=== PATIENT | male | born 1955 | race Caucasian/White ===

== ENCOUNTER 2017-05-16 08:23 | Day surgery (SDC) | payer SELFPAY ==
[2017-05-16] MEDS ORDERED: LIDOCAINE HCL 1% MPF SOL ONE (08:54)
[2017-05-16] MEDS ORDERED: PROPOFOL 500 MG/50 ML EMU IV ONE (08:54)
[2017-05-16 10:27] VITALS: BP 100/64; PULSE 76; RESP 20; TEMP 96.9; O2SAT 97
== END 2017-05-16 10:45 | disposition home or self-care (01) | DRG 392 ==
LOC: SURG 08:23
PROVIDERS: ATTEND Surgery
DX: R13.10 Dysphagia, unspecified (principal); C15.5 Malignant neoplasm of lower third of esophagus; K44.9 Diaphragmatic hernia without obstruction or gangrene
CPT/HCPCS: 99001; J2001; J2704

== ENCOUNTER 2018-10-23 10:57 | Emergency (ER) | payer SELFPAY ==
[2018-10-23 11:07] VITALS: RESP 20
[2018-10-23 12:50] LABS: ALBUMIN 3.1 gm/dl (3.4-5.0); BILIRUBIN,TOTAL 0.5 mg/dl (0.2-1.0); CALCIUM 8.5 mg/dl (8.5-10.1); CARBON DIOXIDE 25.8 mEq/L (21-32); CREATININE 0.79 mg/dl (0.80-1.30); TOTAL PROTEIN 7.1 gm/dl (6.4-8.2)
[2018-10-23 12:58] LABS: BASOPHILS % (AUTO) 1 % (0-3); EOSINOPHILS % (AUTO) 3 % (0-9); HEMATOCRIT 38 % (39-53); HEMOGLOBIN 12.4 gm/dl (13.5-17.7); LYMPHOCYTES % (AUTO) 27.5 % (10-50); MEAN CORPUSCULAR HEMOGLOBIN 30.5 pg (27.0-32.0); MEAN CORPUSCULAR HGB CONC 32.2 gm/dl (32.0-36.0); MEAN CORPUSCULAR VOLUME 95 fL (80-100); MONOCYTES % (AUTO) 10.2 % (0-12); NEUTROPHILS % (AUTO) 58.4 % (37-80)
[2018-10-23 14:25] VITALS: TEMP 97.9
[2018-10-23 14:26] VITALS: BP 122/71; PULSE 82; O2SAT 98
== END 2018-10-23 13:50 | disposition home or self-care (01) | DRG 392 ==
LOC: ED 10:57
DX: R13.10 Dysphagia, unspecified (principal)
CPT/HCPCS: 36415; 71046; 80053; 85025; 99283

== ENCOUNTER → 2019-03-14 | Day surgery (SDC) | payer SELFPAY ==
[~2019-03-14] MED LIST: BUPIVACAINE/EPI 0.5% 10 ML SOL INFIL ONE; CEFAZOLIN SODIUM 1 GM PDS ONE; DEXAMETHASONE 20 MG/5 ML (4 MG/ML SOL) IV PRN; DEXTROSE IV PRN; FENTANYL 100MCG/2ML SOL ONE; FLUOROURACIL IV PRN; FLUOROURACIL IVP PRN; FOSAPREPITANT IV PRN; HEPARIN 500 Unit PRE-FILL 100 U/ML SOL IV ONE; HEPARIN 500 Unit PRE-FILL 100 U/ML SOL IV PRN; HEPARIN SODIUM 100 U/ML SOL IV ONE; LEUCOVORIN CALCIUM IV PRN; LIDOCAINE HCL 1% MPF 30 SOL ONE; METOCLOPRAMIDE HYDROCHLORIDE 5 MG/ML SOL ONE; MIDAZOLAM 2 MG/2 ML SOL ONE; ONDANSETRON HCL 4 MG/2 ML SOL ONE; OXALIPLATIN IV PRN; PROPOFOL 500 MG/50 ML EMU IV ONE; SODIUM CHLORIDE 0.9% IV PRN; SODIUM CHLORIDE 20 ML 20 ML ONE; [UNRECOGNIZED DRUG - OTHER] IVP PRN
[2019-03-14 07:23] LABS: BASOPHILS % (AUTO) 2 % (0-3); EOSINOPHILS % (AUTO) 5 % (0-9); HEMATOCRIT 39 % (39-53); HEMOGLOBIN 12.5 gm/dl (13.5-17.7); MEAN CORPUSCULAR HGB CONC 32.1 gm/dl (32.0-36.0); MEAN CORPUSCULAR VOLUME 96 fL (80-100); MONOCYTES % (AUTO) 10.6 % (0-12); NEUTROPHILS % (AUTO) 56.1 % (37-80)
[2019-03-14 07:39] LABS: ALBUMIN 3.2 gm/dl (3.4-5.0); BILIRUBIN,TOTAL 0.5 mg/dl (0.2-1.0); CALCIUM 8.4 mg/dl (8.5-10.1); CARBON DIOXIDE 27.9 mEq/L (21-32); CREATININE 0.71 mg/dl (0.80-1.30); POTASSIUM 4.4 mMol/L (3.5-5.1); TOTAL PROTEIN 7.2 gm/dl (6.4-8.2)
[2019-03-14 12:10] VITALS: BP 97/55; PULSE 50; RESP 14; TEMP 96.2; O2SAT 100
[2019-03-14] MEDS: SODIUM CHLORIDE 0.9% FLUSH 10 ML SOL IV PRN ×2 (15:50→15:51)
== END | disposition home or self-care (01) | DRG 376 ==
LOC: SURG 06:54
PROVIDERS: ATTEND Surgery
DX: C15.9 Malignant neoplasm of esophagus, unspecified (principal)
CPT/HCPCS: 36415; 71045; 80053; 83735; 85025; 99211; J0690; J1100; J1644; J2250; J2405; J2765; J3010; J2001; J2704